=== PATIENT | female | born 1960 | race African-American/Black ===

== ENCOUNTER 2018-01-20 11:55 | Emergency (ER) | payer MEDICAID ==
[~2018-01-20] VITALS: Ht 154.9 cm; Wt 55.3 kg
[2018-01-20 11:59] VITALS: Ht 154.9 cm; Wt 55.3 kg
[2018-01-20 14:16] LABS: BASOPHIL % 0.4 % (0-2); PLATELET COUNT 317 x10^3mcL (130-400); RED CELL DISTRIBUTION WIDTH 14.4 % (11.5-14.5)
[2018-01-20 14:19] LABS: CALCIUM 12.1 mg/dL (8.5-10.1); CARBON DIOXIDE 28.3 mmol/L (21-32); CHLORIDE SERUM 102 mmol/L (98-107); CREATININE SERUM 0.7 mg/dL (0.6-1.0); GFR1 > 60 mL/min; GLUCOSE SERUM 113 mg/dL (74-106); SODIUM SERUM 138 mmol/L (136-145)
[2018-01-20 14:24] LABS: ALKALINE PHOSPHATASE 101 U/L (46-116); ALT/SGPT 21 U/L (14-59); AST/SGOT 17 U/L (15-37); BILIRUBIN TOTAL 0.4 mg/dL (0.20-1.00)
[2018-01-20 14:26] LABS: TOTAL PROTEIN, SERUM 8.4 g/dL (6.4-8.2)
[2018-01-20 14:40] LABS: UA SPECIFIC GRAVITY 1.025 (1.005-1.035); microscopic required? YES; urine erythrocyte 3+ (NEGATIVE)
[2018-01-20 16:34] VITALS: BP 153/101
== END 2018-01-20 16:37 | disposition home or self-care (01) ==
LOC: ED 11:55
PROVIDERS: Emergency Medicine
DX: N93.8 Other specified abnormal uterine and vaginal bleeding (principal); F17.200 Nicotine dependence, unspecified, uncomplicated; I10 Essential (primary) hypertension; Z71.6 Tobacco abuse counseling
CPT/HCPCS: 36415; 83880; 99406; J7030; Q0092

== ENCOUNTER 2018-03-11 17:40 | Inpatient (IN) | payer MEDICAID ==
[~2018-03-11] VITALS: Ht 154.9 cm; Wt 53.6 kg
[2018-03-11 18:29] LABS: BASOPHIL % 0.8 % (0-2); PLATELET COUNT 308 x10^3mcL (130-400)
[2018-03-11 18:37] LABS: CALCIUM 9.4 mg/dL (8.5-10.1); CARBON DIOXIDE 21.7 mmol/L (21-32); CHLORIDE SERUM 112 mmol/L (98-107); CREATININE SERUM 0.7 mg/dL (0.6-1.0); GFR1 > 60 mL/min; GLUCOSE SERUM 106 mg/dL (74-106); POTASSIUM SERUM 3.6 mmol/L (3.5-5.1); SODIUM SERUM 143 mmol/L (136-145)
[2018-03-11 18:41] LABS: ALKALINE PHOSPHATASE 75 U/L (46-116); ALT/SGPT 11 U/L (14-59); AST/SGOT 9 U/L (15-37); BILIRUBIN TOTAL 0.1 mg/dL (0.20-1.00); CHOLESTEROL 153 mg/dL (<200); LIPASE 56 IU/L (73-393); TRIGLYCERIDES 85 mg/dL (<150)
[2018-03-11 18:42] LABS: RED CELL DISTRIBUTION WIDTH 17.7 % (11.5-14.5)
[2018-03-11 18:43] LABS: ALBUMIN 2.9 g/dL (3.4-5.0); CHOLESTEROL/HDL RATIO 4.9; HDL CHOLESTEROL 31 mg/dL (40-60); TOTAL PROTEIN, SERUM 5.7 g/dL (6.4-8.2)
[2018-03-11 18:45] LABS: rbc morphology (normal/abnorm) ABNORMAL (NORMAL)
[2018-03-11 19:17] LABS: T3 TOTAL 1.07 ng/mL
[2018-03-11 19:32] LABS: FREE T4 0.97 ng/dL (0.76-1.46); FREE THYROXINE INDEX 2.4 ug/dL (1.4-4.5); T4(THYROXINE) 6.6 ug/dL (4.7-13.3)
[2018-03-11] MEDS ORDERED: LISINOPRIL40 MG PO (19:40)
[2018-03-11] MEDS ORDERED: LIPI20 PO (19:40)
[2018-03-11] MEDS ORDERED: GOOD SENSE ASPI81 M3 PO (19:41)
[2018-03-11] MEDS ORDERED: FEROSUL325 MG PO ×2 (19:42→19:48)
[2018-03-11] MEDS ORDERED: NOR10 PO (19:43)
[2018-03-11 19:49] LABS: MAGNESIUM 1.7 mg/dL (1.8-2.4)
[2018-03-11 19:57] VITALS: BP 136/78
[2018-03-11 20:25] LABS: RED BLOOD CELLS 2.2 M/mm3 (4.10-5.10)
[2018-03-11 21:47] LABS: TOTAL IRON BINDING CAPACITY 245 ug/dL (250-450)
[2018-03-11 22:03] LABS: IRON 233 ug/dL (50-170)
[2018-03-12 02:41] LABS: BASOPHIL % 0.3 % (0-2); PLATELET COUNT 170 x10^3mcL (130-400)
[2018-03-12 02:42] LABS: RED CELL DISTRIBUTION WIDTH 14.6 % (11.5-14.5)
[2018-03-12 04:49] VITALS: BP 112/71
[2018-03-12 06:48] LABS: CALCIUM 10.2 mg/dL (8.5-10.1); CARBON DIOXIDE 23.5 mmol/L (21-32); CHLORIDE SERUM 113 mmol/L (98-107); CREATININE SERUM 0.7 mg/dL (0.6-1.0); GFR1 > 60 mL/min; GLUCOSE SERUM 88 mg/dL (74-106); POTASSIUM SERUM 4.5 mmol/L (3.5-5.1); SODIUM SERUM 145 mmol/L (136-145)
[2018-03-12 08:53] VITALS: BP 129/78
[2018-03-12 12:27] VITALS: BP 92/62
[2018-03-12 17:21] VITALS: BP 113/73
[2018-03-12 21:59] VITALS: BP 98/66
[2018-03-12 22:48] LABS: UA SPECIFIC GRAVITY >=1.030 (1.005-1.035); microscopic required? YES; urine erythrocyte 3+ (NEGATIVE)
[2018-03-12 23:08] LABS: AMPHETAMINE QUAL UR POSITIVE (See below)
[2018-03-13 05:59] VITALS: BP 99/61
[2018-03-13 06:53] LABS: PLATELET COUNT 284 x10^3mcL (130-400)
[2018-03-13 06:54] LABS: CALCIUM 9.9 mg/dL (8.5-10.1); CARBON DIOXIDE 24.4 mmol/L (21-32); CHLORIDE SERUM 113 mmol/L (98-107); CREATININE SERUM 0.6 mg/dL (0.6-1.0); GFR1 > 60 mL/min; GLUCOSE SERUM 103 mg/dL (74-106); MAGNESIUM 1.9 mg/dL (1.8-2.4); PHOSPHOROUS 2.5 mg/dL (2.5-4.9); POTASSIUM SERUM 3.8 mmol/L (3.5-5.1); SODIUM SERUM 145 mmol/L (136-145)
[2018-03-13 06:55] LABS: BASOPHIL % 0.4 % (0-2)
[2018-03-13 06:57] LABS: RED CELL DISTRIBUTION WIDTH 17.1 % (11.5-14.5)
[2018-03-13 08:42] VITALS: BP 114/74
[2018-03-13 12:53] VITALS: BP 122/77
[2018-03-13 16:29] VITALS: BP 111/68
[2018-03-13 21:00] VITALS: BP 106/76
[2018-03-14 05:44] VITALS: BP 122/77
[2018-03-14 07:09] LABS: CALCIUM 10.2 mg/dL (8.5-10.1); CARBON DIOXIDE 25.3 mmol/L (21-32); CHLORIDE SERUM 111 mmol/L (98-107); CREATININE SERUM 0.5 mg/dL (0.6-1.0); GFR1 > 60 mL/min; GLUCOSE SERUM 97 mg/dL (74-106); MAGNESIUM 1.9 mg/dL (1.8-2.4); PHOSPHOROUS 2.2 mg/dL (2.5-4.9); SODIUM SERUM 144 mmol/L (136-145)
[2018-03-14 07:36] LABS: BASOPHIL % 0.6 % (0-2); PLATELET COUNT 327 x10^3mcL (130-400)
[2018-03-14 07:37] LABS: RED CELL DISTRIBUTION WIDTH 17.7 % (11.5-14.5)
[2018-03-14 10:00] VITALS: BP 111/78
[2018-03-14] MEDS ORDERED: BACTRIM DS1 TAB PO (12:38)
[2018-03-14] MEDS ORDERED: OMEPRAZOLE40 M1 PO (12:39)
[2018-03-14] MEDS ORDERED: COL100 PO (12:40)
[2018-03-14 15:42] VITALS: BP 111/78; BP 122/77
== END 2018-03-14 16:43 | disposition home or self-care (01) | DRG 812 ==
LOC: ED 17:40 → DU 18:48 → MU 03-14 10:55
PROVIDERS: Family Medicine; Family Medicine Sports Medicine; Internal Medicine Gastroenterology; Specialist; Student in an Organized Health Care Education/Training Program
PROC: 30233N1 Transfusion of Nonautologous Red Blood Cells into Peripheral Vein, Percutaneous Approach (ICD-10-PCS; 2018-03-11)
PROC: 0DBP8ZZ Excision of Rectum, Via Natural or Artificial Opening Endoscopic (ICD-10-PCS; 2018-03-12)
PROC: 0DB98ZX Excision of Duodenum, Via Natural or Artificial Opening Endoscopic, Diagnostic (ICD-10-PCS; principal; 2018-03-12 13:30)
PROC: 0DB78ZX Excision of Stomach, Pylorus, Via Natural or Artificial Opening Endoscopic, Diagnostic (ICD-10-PCS; 2018-03-12 13:30)
PROC: 0DBG8ZZ Excision of Left Large Intestine, Via Natural or Artificial Opening Endoscopic (ICD-10-PCS; 2018-03-12 13:30)
DX: T43.621A Poisoning by amphetamines, accidental (unintentional), initial encounter (principal); G92 Toxic encephalopathy; K26.4 Chronic or unspecified duodenal ulcer with hemorrhage; E83.39 Other disorders of phosphorus metabolism; I10 Essential (primary) hypertension; G90.8 Other disorders of autonomic nervous system; F17.210 Nicotine dependence, cigarettes, uncomplicated; E78.00 Pure hypercholesterolemia, unspecified; D64.9 Anemia, unspecified; E78.5 Hyperlipidemia, unspecified; N93.8 Other specified abnormal uterine and vaginal bleeding; K29.70 Gastritis, unspecified, without bleeding; D12.8 Benign neoplasm of rectum; K64.8 Other hemorrhoids; K63.5 Polyp of colon; K21.9 Gastro-esophageal reflux disease without esophagitis; Y92.89 Other specified places as the place of occurrence of the external cause; D25.9 Leiomyoma of uterus, unspecified
CPT/HCPCS: 43235; 45378; 83880; 84439; 97535-GP; C9113; G0480; J0696; J1200; J1610; J2250; J2310; J3010; J3490; J7030; J7050; P9016; Q0092; Q0163

== ENCOUNTER 2018-10-28 12:10 | Emergency (ER) | payer OTHER ==
[~2018-10-28] VITALS: Ht 154.9 cm; Wt 58.1 kg
[~2018-10-28 12:10] MED LIST: BACTRIM DS1 TAB PO; COL100 PO; FEROSUL325 MG PO; GOOD SENSE ASPI81 M3 PO; LIPI20 PO; LISINOPRIL40 MG PO; NOR10 PO; OMEPRAZOLE40 M1 PO
[2018-10-28 12:13] VITALS: BP 142/91; Ht 154.9 cm; Wt 58.1 kg
== END 2018-10-28 15:00 | disposition home or self-care (01) ==
LOC: ED 12:10
DX: I73.00 Raynaud's syndrome without gangrene (principal); F17.210 Nicotine dependence, cigarettes, uncomplicated; M25.512 Pain in left shoulder; I10 Essential (primary) hypertension; E78.00 Pure hypercholesterolemia, unspecified
CPT/HCPCS: 99406; J1885

== ENCOUNTER 2020-04-19 09:06 | Emergency (ER) | payer OTHER ==
[~2020-04-19] VITALS: Ht 162.6 cm; Wt 56.7 kg
[2020-04-19 09:14] VITALS: Ht 162.6 cm; Wt 56.7 kg
[2020-04-19 12:20] VITALS: BP 128/76
== END 2020-04-19 12:20 | disposition home or self-care (01) ==
LOC: ED 09:06
DX: M17.12 Unilateral primary osteoarthritis, left knee (principal); I10 Essential (primary) hypertension; E78.00 Pure hypercholesterolemia, unspecified; F17.210 Nicotine dependence, cigarettes, uncomplicated; Z90.710 Acquired absence of both cervix and uterus; Z86.2 Personal history of diseases of the blood and blood-forming organs and certain disorders involving the immune mechanism
CPT/HCPCS: 99406; J1100; J1885; Q0092